=== PATIENT | female | born 2005 | race Hispanic/Latino ===

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

== ENCOUNTER 2024-04-15 10:50 | Emergency (ER) | payer SELFPAY ==
--- OUTSIDE RECORDS SUMMARY | 2024-04-15 10:53 | XMS REPORT | Continuity of Care Document ---
Author Name Unknown Address [address] [place] [address] [address] [place] [address] [facility] Address [address] [place] [address] [address] [place] [address] Care Team Providers Care General Maintenance Engineer Name Role Phone Unavailable Unavailable Unavailable Encounters Start Date/Time End Date/Time Encounter Type Admission Type Attending [facility] Care Facility Care Department Encounter ID Source 2024-04-13 17:14:05 2024-04-13 17:14:05 Outpatient [facility] SFA [id number] Nahid Daphne Durga 2023-01-31 16:52:39 2023-01-31 16:52:39 Outpatient SFA SFA [id number] Nahid Calixto 2022-12-27 15:08:54 2022-12-27 15:08:54 Outpatient SFA SFA [id number] Nahid Calixto 2022-06-01 14:57:12 2022-06-01 14:57:12 Outpatient SFA SFA [id number] Nahid Calixto
--- NOTE | 2024-04-15 11:35 | RAD REPORT ---
EXAMINATION: TWO VIEW CHEST XR CLINICAL INDICATION: COUGH TECHNIQUE: 2 views of the chest was performed. COMPARISON: 2021 chest radiograph FINDINGS: Subtle reticular opacities in both lungs could indicate viral infection or asthma. No focal consolida tion to suggest bacterial pneumonia is seen. The heart is normal in size. No displaced fractures evident.
[2024-04-15] MEDS ORDERED: AZITHROMYCIN 250 MG TAB ONE (13:51)
--- NOTE | 2024-04-15 13:51 | EDPHYS ---
Physician Documentation [facility] Name: Angie Humphries Age: 18 yrs Sex: Female : 2005 Arrival Date: 04/15/2024 Time: 10:50 Bed 23 Private MD: ED Physician Paul Vizcarra HPI: 04/15 13:48 This 18 yrs old Female presents to ER via Ambulatory with complaints of Flu+, monica Cough. 13:48 The patient or guardian reports airway noise, cough, flu symptoms, arthralgias, monica low-grade fever, myalgias. Onset: The symptoms/episode began/occurred 3 day(s) ago. Severity of symptoms: At their worst the symptoms were mild, in the emergency department the symptoms are unchanged. Associated signs and symptoms: The patient has no apparent associated signs or symptoms. The patient has not experienced similar symptoms in the past. 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 - Infectious Disease History:: Denies. - Social history:: Smoking status: Patient denies any tobacco usage or history of. - Family history:: not pertinent. ROS: 13:48 Constitutional: Negative for fever, chills, and weight loss, Eyes: Negative for injury, monica pain, redness, and discharge, ENT: Negative for injury, pain, and discharge, Neck: Negative for injury, pain, and swelling, Cardiovascular: Negative for chest pain, palpitations, and edema, Abdomen/GI: Negative for abdominal pain, nausea, vomiting, diarrhea, and constipation, Back: Negative for injury and pain, : Negative for injury, bleeding, discharge, and swelling, MS/Extremity: Negative for injury and deformity, Skin: Negative for injury, rash, and discoloration, Neuro: Negative for headache, weakness, numbness, tingling, and seizure, Psych: Negative for depression, anxiety, suicide ideation, homicidal ideation, and hallucinations, Allergy/Immunology: Negative for hives, rash, and allergies, Endocrine: Negative for neck swelling, polydipsia, polyuria, polyphagia, and marked weight changes, 13:48 Respiratory: Positive for cough, Exam: 13:48 Constitutional: This is a well developed, well nourished patient who is awake, alert, monica and in no acute distress. Head/Face: Normocephalic, atraumatic. Eyes: Pupils equal round and reactive to light, extra-ocular motions intact. Lids and lashes normal. Conjunctiva and sclera are non-icteric and not injected. Cornea within normal limits. Periorbital areas with no swelling, redness, or edema. ENT: Nares patent. No nasal discharge, no septal abnormalities noted. Tympanic membranes are normal and external auditory canals are clear. Oropharynx with no redness, swelling, or masses, exudates, or evidence of obstruction, uvula midline. Mucous membranes moist. Neck: Trachea midline, no thyromegaly or masses palpated, and no cervical lymphadenopathy. Supple, full range of motion without nuchal rigidity, or vertebral point tenderness. No Meningismus. Chest/axilla: Normal chest wall appearance and motion. Nontender with no deformity. No lesions are appreciated. Cardiovascular: Regular rate and rhythm with a normal S1 and S2. No gallops, murmurs, or rubs. Normal PMI, no JVD. No pulse deficits. Abdomen/GI: Soft, non-tender, with normal bowel sounds. No distension or tympany. No guarding or rebound. No evidence of tenderness throughout. Back: No spinal tenderness. No costovertebral tenderness. Full range of motion. Skin: Warm, dry with normal turgor. Normal color with no rashes, no lesions, and no evidence of cellulitis. MS/ Extremity: Pulses equal, no cyanosis. Neurovascular intact. Full, normal range of motion. Neuro: Awake and alert, GCS 15, oriented to person, place, time, and situation. Cranial nerves II-XII grossly intact. Motor strength 5/5 in all extremities. Sensory grossly intact. Cerebellar exam normal. Normal gait. Psych: Awake, alert, with orientation to person, place and time. Behavior, mood, and affect are within normal limits. 13:48 Respiratory: the patient does not display signs of respiratory distress, Respirations: normal, no acute changes, Breath sounds: are clear throughout, Respiratory rate: 18 Vital Signs: 11:04 BP 133 / 89; Pulse 111; Resp 19; Temp 98.6; Pulse Ox 100% ; Weight 58.97 kg; Height 5 jl7 ft. 5 in. ; Pain 8/10; 14:00 BP 116 / 75; Pulse 85; Resp 19; Temp 98.7; Pulse Ox 100% ; me1 11:04 Body Mass Index 21.63 (58.97 kg, 165.1 cm) - Percentile 49.8 % jl7 11:04 Pain Scale: Adult jl7 MDM: 10:58 Medical Screening Exam initiated [facility] 11:09 Medical Screening Exam initiated [facility] 13:49 Data reviewed: vital signs, nurses notes, lab test result(s), Flu: positive AT PCP, [facility] radiologic studies, plain films. Care significantly affected by the following chronic conditions: NONE. 04/15 11:00 Order name: Chest Pa And Lat (2 Views) XRAY; Complete Time: 13:32 [facility] Administered Medications: 13:53 Drug: AZITHromycin PO 500 mg PO once Route: PO; me1 Disposition Summary: 04/15/24 13:51 Discharge Ordered Notes: Location: Home [facility] Problem: new [facility] Symptoms: have improved [facility] Condition: Stable [facility] Diagnosis - Influenza due to identified novel influenza A virus monica - Fever, unspecified monica - Cough monica Followup: monica - With: Private Physician - When: 2 - 3 days - Reason: Recheck today's complaints, Continuance of care, Re-evaluation by your physician Discharge Instructions: - Discharge Summary Sheet monica - Fever, Adult monica - Influenza, Adult monica - Cool Mist Vaporizer monica - Influenza, Adult, [id number] monica - Cough, Adult, [id number] monica - Cough, Adult monica - Fever, Adult, [id number] [facility] Forms: - Medication Reconciliation Form [facility] - Antibiotic Education [facility] - Prescription Opioid Use [facility] - Patient Portal Instructions [facility] - Leadership Thank You Letter [facility] Prescriptions: - Bromfed DM 2-30-10 mg/5 mL Oral syrup - administer 5 milliliter ORAL route every 4-6 hours as needed for cold symptoms; monica 160 milliliter; Refills: 0, Product Selection Permitted - Tessalon Perles 100 mg Oral Capsule - take 1 capsule ORAL route every 8 hours As needed; 15 capsule; Refills: 0, monica Product Selection Permitted - Zithromax Z-Harjit 250 mg Oral Tablet - take 1 tablet ORAL route as directed for 5 days Day 1 - take two (2) tablets monica one time. Day 2, 3, 4 , 5 take one (1) tablet once daily.; 6 tablet; Refills: 0, Product Selection Permitted - Tamiflu 75 mg Oral capsule - take 1 tablet ORAL route every 12 hours for 5 days; 10 tablet; Refills: 0, monica Product Selection Permitted Signatures: Dispatcher [employer] EDPaul Perkins MD MD cha Leal, Jahala RN RN jl7 Amy Sanchez RN RN me1 Corrections: (The following items were deleted from the chart) 11:00 11:00 Chest Pa And Lat (2 Views)+RAD.RAD.BRZ ordered. [facility] EDNH 11:00 11:00 Urinalysis+U.LAB.BRZ ordered. [facility] 11:00 11:00 Test, Urine+UC.LAB.BRZ ordered. [facility] EDMS 11:07 11:07 Allergies: unknown medication; eduar jl7
--- NOTE | 2024-04-15 13:51 | ER ---
Nurse's Notes [facility] Name: Angie Humphries Age: 18 yrs Sex: Female : 2005 Arrival Date: 04/15/2024 Time: 10:50 Bed 23 Private MD: Diagnosis: Influenza due to identified novel influenza A virus;Fever, unspecified;Cough Presentation: 04/15 11:04 Chief complaint: Patient states: Positive for Flu A, taking solu-medrol, cough has jl7 gotten worse and productive. Coronavirus screen: Client presents with at least one sign or symptom that may indicate coronavirus-19. Ebola Screen: No symptoms or risks identified at this time. Initial Sepsis Screen: Does the patient meet any 2 criteria? No. Patient's initial sepsis screen is negative. Does the patient have a suspected source of infection? No. Patient's initial sepsis screen is negative. Risk Assessment: Do you want to hurt yourself or someone else? Patient reports no desire to harm self or others. Onset of symptoms was April 12, 2024. 11:04 Method Of Arrival: Ambulatory [facility] 11:04 Acuity: DEIDRE 4 jl7 Triage Assessment: 11:07 General: Appears in no apparent distress. uncomfortable, ill, Behavior is calm, jl7 cooperative, appropriate for age. Pain: Complains of pain in sore chest with cough. Cardiovascular: Patient's skin is warm and dry. Respiratory: Reports cough that is productive, Airway is patent Respiratory effort is even, unlabored, Respiratory pattern is regular, symmetrical. Derm: Skin is pink, warm \T\ dry. 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 - Infectious Disease History:: Denies. - Social history:: Smoking status: Patient denies any tobacco usage or history of. - Family history:: not pertinent. Screenin:00 [facility] ED Fall Risk Assessment (Adult) History of falling in the last 3 months, me1 including since admission No falls in past 3 months (0 pts) Confusion or Disorientation No (0 pts) Intoxicated or Sedated No (0 pts) Impaired Gait No (0 pts) Mobility Assist Device Used No (0 pt) Altered Elimination No (0 pt) Score/Fall Risk Level 0 - 2 = Low Risk Maintained a safe environment, Provided non-skid footwear, Hourly rounding (assess needs \T\ fall precautionary measures) done. Abuse screen: Denies threats or abuse. Nutritional screening: No deficits noted. Tuberculosis screening: No symptoms or risk factors identified. Assessment: 11:10 Reassessment: Pt on her menstrual cycle, reports no chance of , refused UPT, jl7 lab notified, x-ray notified. 11:48 Reassessment: No changes from previously documented assessment. Patient and/or family ll1 updated on plan of care and expected duration. Pain level reassessed. Patient is alert, oriented x 3, equal unlabored respirations, skin warm/dry/pink. 12:00 General: Appears ill, well groomed, well developed, well nourished, Behavior is calm, me1 cooperative, appropriate for age, Reports Positive for Flu A, taking solu-medrol, cough has gotten worse and productive. Pain: Denies pain. Neuro: Level of Consciousness is awake, alert, obeys commands, Oriented to person, place, time, situation, Appropriate for age. Cardiovascular: Patient's skin is warm and dry. Respiratory: Reports cough that is productive, Airway is patent Respiratory effort is even, unlabored, Respiratory pattern is regular, symmetrical. GI: No signs and/or symptoms were reported involving the gastrointestinal system. : No signs and/or symptoms were reported regarding the genitourinary system. EENT: No signs and/or symptoms were reported regarding the EENT system. Derm: Skin is intact, is healthy with good turgor, Skin is pink, warm \T\ dry. Musculoskeletal: No signs and/or symptoms reported regarding the musculoskeletal system. Vital Signs: 11:04 BP 133 / 89; Pulse 111; Resp 19; Temp 98.6; Pulse Ox 100% ; Weight 58.97 kg; Height 5 jl7 ft. 5 in. ; Pain 8/10; 14:00 BP 116 / 75; Pulse 85; Resp 19; Temp 98.7; Pulse Ox 100% ; me1 11:04 Body Mass Index 21.63 (58.97 kg, 165.1 cm) - Percentile 49.8 % jl7 11:04 Pain Scale: Adult jl7 ED Course: 10:53 Patient arrived in ED. mr 10:58 Paul Vizcarra MD is Attending Physician. monica 11:05 Radiology exam delayed due to test not completed at this time. brayan 11:07 Triage completed. jl7 11:07 Arm band placed on right wrist. jl7 11:24 Chest Pa And Lat (2 Views) XRAY In Process Unspecified. EDMS 11:45 Patient placed in an exam room, on a stretcher. ll1 11:54 Amy Sanchez, RN is Primary Nurse. me1 12:00 Patient has correct armband on for positive identification. Bed in low position. Call me1 light in reach. Side rails up X2. Provided Education on: POC. Verbalized understanding. 12:00 No provider procedures requiring assistance completed. me1 14:08 IV discontinued, intact, bleeding controlled, No redness/swelling at site. Pressure me1 dressing applied. Administered Medications: 13:53 Drug: AZITHromycin PO 500 mg PO once Route: PO; me1 Medication: 12:00 VIS not applicable for this client. me1 Outcome: 13:51 Discharge ordered by . [facility] 14:08 Discharged to home ambulatory, with family, ma1 14:08 Condition: stable 14:08 Discharge instructions given to patient, family, Instructed on discharge instructions, follow up and referral plans. medication usage, Demonstrated understanding of instructions, follow-up care, medications, Prescriptions given X 4, 14:09 Patient left the ED. me1 Signatures: Dispatcher [employer] [facility] Paul Vizcarra MD MD cha Rivera, Mary, Reg Reg MontenegroChucky, RN RN jl7 Marychuy Calderon RN RN ll1 Lillie Carr md2 Amy Sanchez, MERRILL RN me1 Corrections: (The following items were deleted from the chart) 11:07 11:07 Allergies: unknown medication; [facility] jl7 11:59 11:04 Chief complaint: Patient states: Positive for Flu A, taking solu-medrol, cough me1 has gotten worse and productive jl7 12:00 11:04 Chief complaint: Patient states: Positive for Flu A, taking solu-medrol, cough me1 has gotten worse and productive me1
[2024-04-15 14:15] VITALS: O2SAT 100
[2024-04-15 14:16] VITALS: BP 116/75; TEMP 98.7
== END 2024-04-15 14:09 | disposition home or self-care (01) ==
LOC: ER 10:50
DX: J10.1 Influenza due to other identified influenza virus with other respiratory manifestations (principal); R50.9 Fever, unspecified
CPT/HCPCS: 71046